=== PATIENT | female | born 1990 ===

== ENCOUNTER 2017-08-31 13:44 | Emergency (ER) | payer OTHER ==
[~2017-08-31] VITALS: Ht 157.5 cm; Wt 52.2 kg
[2017-08-31] MEDS ORDERED: AMOX-CLAV 875-1 EACH (13:59)
[2017-08-31] MEDS ORDERED: DOLOGEN CAPLET1 EACH PO (19:17)
[2017-08-31] MEDS ORDERED: ADDERALL 20 MG20 MG PO (19:18)
== END 2017-08-31 20:38 | disposition home or self-care (01) ==
LOC: ER 13:44
DX: R53.81 Other malaise (principal)